=== PATIENT | female | born 1945 | race African-American/Black ===

== ENCOUNTER → 2017-09-23 | Outpatient (CLI) | payer MEDICARE ==
[2017-09-23 13:51] LABS: ALANINE AMINOTRANSFERASE 24 U/L (9-52); ALBUMIN 4.1 g/dL (3.5-5.0); ALKALINE PHOSPHATASE 58 U/L (38-126); ANION GAP 10 (5-19); ASPARTATE AMINO TRANSFERASE 24 U/L (14-36); BILIRUBIN,DIRECT 0.2 mg/dL (0.0-0.4); BILIRUBIN,TOTAL 0.2 mg/dL (0.2-1.3); BLOOD UREA NITROGEN 27 mg/dL (7-20); CALCIUM 9.5 mg/dL (8.4-10.2); CARBON DIOXIDE 28 mmol/L (22-30); CHLORIDE 108 mmol/L (98-107); GLUCOSE 97 mg/dL (75-110); POTASSIUM 4.3 mmol/L (3.6-5.0); SODIUM 145.8 mmol/L (137-145); TOTAL PROTEIN 7.7 g/dL (6.3-8.2)
== END ==
LOC: OD 12:40
PROVIDERS: ATTEND Internal Medicine Geriatric Medicine
DX: I10 Essential (primary) hypertension (principal)
CPT/HCPCS: 36415; 80053

== ENCOUNTER 2018-01-20 23:11 | Emergency (ER) | payer MEDICARE ==
[2018-01-20 23:55] LABS: ABSOLUTE LYMPHOCYTES (AUTO) 1.7 10^3/uL (0.5-4.7); ABSOLUTE MONOCYTES (AUTO) 0.4 10^3/uL (0.1-1.4); ABSOLUTE NEUT (AUTO) 3.9 10^3/uL (1.7-8.2); BASOPHILS % (AUTO) 0.2 % (0-2); EOSINOPHILS % (AUTO) 0.3 % (0-6); HEMATOCRIT 32.2 % (36.0-47.0); HEMOGLOBIN 10.6 g/dL (12.0-15.5); MEAN CORPUSCULAR VOLUME 79 fl (80-97); MONOCYTES % (AUTO) 6.7 % (3-13); PLATELET COUNT 219 10^3/uL (150-450); RED BLOOD COUNT 4.08 10^6/uL (3.72-5.28); RED CELL DISTRIBUTION WIDTH 14.1 % (11.5-14.0); SEGMENTED NEUTROPHILS % (AUTO) 64.8 % (42-78); TOTAL CELLS COUNTED % (AUTO) 100 %; WHITE BLOOD COUNT 6.1 10^3/uL (4.0-10.5)
[2018-01-21] MEDS ORDERED: ONDANSETRON 4 MG TAB.RAPDIS PO ONE (00:04)
--- NOTE | 2018-01-21 00:06 | ER Document Report ---
ED General - General Chief Complaint: General Weakness Stated Complaint: NAUSEA Time Seen by Provider: 01/20/18 23:56 Notes: Patient is a 72-year-old female that comes emergency department for chief complaint of "sick symptoms". She states she went to bed tonight, she states she started feeling nauseated, like her head was swelling, she felt a vague shortness of breath sensation, and she broke out into a sweat. She states symptoms past and now she feels almost normal. She denies chest pain, abdominal pain, vomiting, fever. She states she felt fine during the day. Past medical history of hypertension and GERD, denies smoking. Denies history of UT or stroke, drinks alcohol rarely. Patient comes from home. TRAVEL OUTSIDE OF THE [place] IN LAST 30 DAYS: No - Related Data Allergies/Adverse Reactions: No Known Allergies Allergy (Verified 03/08/15 07:15) Past Medical History - General Information source: Patient, Relative - Social History Smoking Status: Never Smoker Chew tobacco use (# tins/day): No Drug Abuse: None Lives with: Family Family History: Reviewed & Not Pertinent Patient has suicidal ideation: No Patient has homicidal ideation: No - Past Medical History Cardiac Medical History: Reports: Hx Hypertension Denies: Hx Heart Attack Pulmonary Medical History: Denies: Hx Asthma Neurological Medical History: Denies: Hx Cerebrovascular Accident, Hx Seizures Renal/ Medical History: Denies: Hx Peritoneal Dialysis GI Medical History: Reports: Hx Gastroesophageal Reflux Disease. Denies: Hx Hepatitis, Hx Hiatal Hernia, Hx Ulcer Infectious Medical History: Denies: Hx Hepatitis Past Surgical History: Reports: Hx Hysterectomy. Denies: Hx Mastectomy, Hx Open Heart Surgery, Hx Pacemaker Review of Systems - Review of Systems Constitutional: See HPI EENT: No symptoms reported Cardiovascular: See HPI Respiratory: See HPI Gastrointestinal: See HPI Genitourinary: No symptoms reported Female Genitourinary: No symptoms reported Musculoskeletal: No symptoms reported Skin: No symptoms reported Hematologic/Lymphatic: No symptoms reported Neurological/Psychological: No symptoms reported Physical Exam - Vital signs Vitals: Temp Pulse Resp BP Pulse Ox 98.1 F 81 18 137/72 H 96 01/20/18 23:22 01/20/18 23:22 01/20/18 23:22 01/20/18 23:22 01/20/18 23:22 - Notes Notes: GENERAL: Alert, interacts well. No acute distress. HEAD: Normocephalic, atraumatic. EYES: Pupils equal, round, and reactive to light. Extraocular movements intact. ENT: Oral mucosa moist, tongue midline. NECK: Full range of motion. Supple. Trachea midline. LUNGS: Clear to auscultation bilaterally, no wheezes, rales, or rhonchi. No respiratory distress. HEART: Regular rate and rhythm. No murmur ABDOMEN: Soft, non-tender. Non-distended. Bowel sounds present in all 4 quadrants. EXTREMITIES: Moves all 4 extremities spontaneously. No edema, normal radial and dorsalis pedis pulses bilaterally. No cyanosis. BACK: no cervical, thoracic, lumbar midline tenderness. No saddle anesthesia, normal distal neurovascular exam. NEUROLOGICAL: Alert and oriented x3. Normal speech. [cranial nerves II through XII grossly intact]. PSYCH: Normal affect, normal mood. SKIN: Warm, dry, normal turgor. No rashes or lesions noted. Course - Re-evaluation Re-evalutation: Patient is quite well-appearing on examination. No hypoxia, no tachycardia, no hypotension, no fever now. Patient states she thinks she is ill with something although her complaints are nonspecific. EKG without ST segment changes or T wave inversions in consecutive leads. CBC unremarkable, creatinine at baseline approximately, chemistry generally unremarkable. 2 sets of troponins checked and are negative. Chest x-ray does suggest early pneumonia. Patient has been reevaluated twice without decompensation. She remains alert and well-appearing. I discussed results with patient and her son. Blood cultures were sent, started on antibiotics. Discussed potential admission for her pneumonia and symptoms with her advanced age, patient and son declined, they state they will take the antibiotics and they will follow-up closely with her primary care provider in the office. I discussed return precautions in detail with patient and son, they state satisfaction and agreement with plan. - Vital Signs Vital signs: Temp Pulse Resp BP Pulse Ox 98.6 F 81 14 126/69 H 98 01/21/18 02:53 01/20/18 23:22 01/21/18 02:53 01/21/18 02:53 01/21/18 02:53 - Laboratory Result Diagrams: 01/20/18 23:40 01/20/18 23:40 Laboratory results interpreted by me: 01/20/18 01/20/18 23:40 23:40 Hgb 10.6 L Hct 32.2 L MCV 79 L MCH 26.0 L RDW 14.1 H BUN 34 H Creatinine 1.78 H Est GFR ( Amer) 34 L Est GFR (Non-Af Amer) 28 L Glucose 131 H Discharge - Discharge Clinical Impression: Weakness, Shortness of breath, Night sweats, Nausea Condition: Stable Disposition: HOME, SELF-CARE Additional Instructions: Your chest x-ray does indicate a developing pneumonia, your remaining workup does not show any abnormalities. We have started you on doxycycline and antibiotic, please take as prescribed, drink plenty fluids and rest. Follow-up with your primary care provider in the next 2 days. Return if you worsen including difficulty breathing, chest pain, spiking fever, passing out, vomiting, or any other concerning or worsening symptoms. Prescriptions: Doxycycline Hyclate 100 mg PO BID #14 capsule Referrals: NEY STACY MD [Primary Care Provider] - Follow up as needed
[2018-01-21 00:09] LABS: ALANINE AMINOTRANSFERASE 26 U/L (9-52); ALBUMIN 4.3 g/dL (3.5-5.0); ALKALINE PHOSPHATASE 59 U/L (38-126); ANION GAP 13 (5-19); ASPARTATE AMINO TRANSFERASE 25 U/L (14-36); BILIRUBIN,DIRECT 0.3 mg/dL (0.0-0.4); BILIRUBIN,TOTAL 0.5 mg/dL (0.2-1.3); BLOOD UREA NITROGEN 34 mg/dL (7-20); CALCIUM 9.4 mg/dL (8.4-10.2); CARBON DIOXIDE 26 mmol/L (22-30); CHLORIDE 102 mmol/L (98-107); GLUCOSE 131 mg/dL (75-110); POTASSIUM 4.1 mmol/L (3.6-5.0); SODIUM 140.9 mmol/L (137-145); TOTAL PROTEIN 8.1 g/dL (6.3-8.2)
--- NOTE | 2018-01-21 00:52 | RADIOLOGY REPORT (SQ) ---
EXAM DESCRIPTION: XR CHEST 2 VIEWS COMPLETED DATE/TME: 01/20/2018 00:00 CLINICAL HISTORY: SOB COMPARISON: 09/25/2010 FINDINGS: Single frontal view of the chest. Tortuosity and atherosclerotic calcification of the thoracic aorta. Heart is not enlarged. Leads overlie the chest. Low lung volumes. Minimal patchy right basilar opacity. No pneumothorax or pleural effusion. No displaced rib fractures identified. Upper abdominal soft tissues are unremarkable. IMPRESSION: 1. Minimal patchy right basilar opacity may represent developing pneumonia or atelectasis. Continued radiographic follow-up to resolution recommended.
[2018-01-21] MEDS ORDERED: DOXYCYCLINE HYCLATE 100 MG TABLET PO ONE (01:35)
[2018-01-21] MEDS ORDERED: CEFTRIAXONE INJ 1000 MG VIAL IV ONE (01:35)
[2018-01-21] MEDS ORDERED: ONDANSETRON ODT 4 MG TAB (6 TAB/ER DISP) PO PRN (02:33)
[2018-01-21 02:55] VITALS: BP 126/69
--- NOTE | 2018-01-21 08:59 | EKG REPORT ---
SEVERITY:- BORDERLINE ECG - SINUS RHYTHM LVH BY VOLTAGE CONSIDER ANTERIOR INFARCT : Confirmed by: Renee Carcamo 21-Jan-2018 08:58:37
== END 2018-01-21 03:12 | disposition home or self-care (01) ==
LOC: ER 23:11
DX: J18.9 Pneumonia, unspecified organism (principal); R53.1 Weakness; R06.02 Shortness of breath; R61 Generalized hyperhidrosis; R11.0 Nausea; I10 Essential (primary) hypertension
CPT/HCPCS: 93005; 99285; 96365; 36415; 87040; 85025; 80053; 84484; 71046; 93010; A9270 ×3; J0696; S0119